=== PATIENT | female | born 2000 | race African-American/Black ===

== ENCOUNTER 2024-12-04 08:48 | Emergency (ER) | payer OTHER, SELFPAY ==
[2024-12-04 08:54] VITALS: BP 108/64; PULSE 98; RESP 18; TEMP 36.7; O2SAT 99; BMI 24.4
--- NOTE | 2024-12-04 08:54 | ECG_ITS ---
Test Reason : SYNCOPY Blood Pressure : */* mmHG Vent. Rate : 91 BPM Atrial Rate : 91 BPM P-R Int : 132 ms QRS Dur : 82 ms QT Int : 364 ms P-R-T Axes : 62 52 33 degrees QTcB Int : 447 ms Normal sinus rhythm with sinus arrhythmia Normal ECG No previous ECGs available Referred By: Apurva Rios Electronically Signed By: YESSI CURTIS
--- NOTE | 2024-12-04 08:54 | ED.GENADULT ---
HPI - General Adult General Chief complaint: Syncope Stated complaint: SYNCOPAL EPISODE PER EMS Time Seen by Provider: 12/04/24 08:52 Source: patient, RN notes reviewed, old records reviewed and other Mode of arrival: ambulatory Limitations: no limitations History of Present Illness ED Provider: Gabriel [facility] narrative: Patient is a 23-year old female with no reported past medical history presenting to the emergency department after a syncopal episode. She was doing an intense fitness test involving running, lifting, etc. She reports that she began to feel lightheaded and everything went dark. Co-worker states that patient collapsed to the ground, denies head strike, and was unresponsive for a few minutes with her eyes open, HR was 140. Patient then began to regain consciousness and had rapid respirations. Co-worker denies any seizure like activity. Patient states she did not have anything to eat this morning. Patient denies history of smoking, she is not on OCPs, denies recent calf pain or swelling. Denies any chest pain, palpitations, dyspnea. MD complaint: syncope Onset (ago): hour(s) Related Data Allergies Allergy/AdvReac Type Severity Reaction Status Date / Time sulfur dioxide Allergy Itching Verified 12/04/24 08:56 Review of Systems Review of Systems: As per HPI Yes all other systems are reviewed and are negative Constitutional: Constitutional: Reports as per HPI [facility] Social History Social History Smoked in Last 30 Days: No Use of substances other than those prescribed or required for medical reasons: No Advance Directives: No Advance Directives Information Provided: No Physical Exam ED Vital Signs: Vital Signs - 24 hr 12/04/24 08:54 12/04/24 09:22 12/04/24 10:18 Temperature 98.1 F Pulse Rate 98 68 Respiratory Rate 18 Blood Pressure 108/64 105/63 Pulse Oximetry 99 Oxygen Delivery Method Room Air Room Air 12/04/24 10:19 12/04/24 10:20 12/04/24 10:25 Temperature 98 F Pulse Rate 68 73 73 Respiratory Rate 16 Blood Pressure 109/67 118/69 118/69 Pulse Oximetry 100 Oxygen Delivery Method Room Air BMI result Body Mass Index 24.4 Vital signs have been reviewed and appear to be correct. Blood pressure normal. Heart rate normal. Respiratory rate normal. Temperature normal. Oxygen saturation normal. Const General: cooperative, healthy appearing and no acute distress Orientation/consciousness: oriented to person, oriented to place, oriented to time and patient oriented x3 Limitations: no limitations HENMT Head: Yes normocephalic and Yes atraumatic Ears: external ears normal General nose exam: Normal external nose present Face and sinus: Yes face symmetric Mouth: oropharynx normal and moist mucous membranes Throat: Yes uvula midline Eyes Pupils: Equal, round and reactive pupils present Neck Neck: Yes normal visual inspection and Yes supple Resp Effort & Inspection: normal respiratory effort and able to speak in complete sentences Auscultation: clear to auscultation bilaterally Cardio Rate: regular rate Rhythm: regular rhythm Heart sounds: S1 normal heart sound present and S2 normal heart sound present GI Palpation (GI): Soft to palpation and nontender Auscultation: normoactive bowel sounds General: Yes no CVA tenderness Back/Spine/Pelvis Back: no CVA tenderness Skin General skin exam: elasticity normal and turgor normal Neuro General: oriented to person, oriented to place, oriented to time, patient oriented x3, moves all extremities, no focal motor deficits and CN's II-XI intact bilaterally Cranial nerves: Yes Equal, round and reactive pupils present Cognition (Neuro): normal cognition Extrem General: Yes full ROM, Yes no pedal edema and Yes no calf tenderness Psych Mental Status: mental status grossly normal Affect: normal affect Thought process: Normal thought process present Medical Decision Making Medical Decision Making MDM Narrative: Patient is a 23-year old female with no reported past medical history presenting to the emergency department after a syncopal episode. On exam patient is awake, A+Ox3, VS WNL, afebrile, normal neurological exam without focal deficits, physical exam findings as above. Given reported symptoms and physical exam findings, initial differential includes but is not limited to vasovagal syncope, hypoglycemia or other electrolyte abnormality, dehydration, cardiac arrhythmia. Temperature very hot and humid outdoors today. Unlikely PE, PERC 0. Unlikely seizure. Labs notable for mild anemia not at transfusable level, no significant electrolyte abnormalities, negative HCG. EKG shows normal sinus rhythm. No orthostatic intolerance. Feel patient is stable for discharge, likely vasovagal syncope given prodromal symptoms. Discussed with patient that she should eat a small meal including protein prior to strenuous physical activity, and if she begins to feel lightheaded, should sit or lay down to prevent injury. Return precautions discussed. Follow up with PCP. Patient verbalized understanding of and agreement with plan. Differential Diagnosis Differential Diagnoses: The differential diagnosis associated with the presentation includes as per [facility] Admission/Observation Consideration of admission/observation: Escalation of care including admission/observation considered Patient would have been admitted to the hospital had their clinical presentation warranted hospital admission. Lab Data [facility] Lab Attestation statement: I reviewed the patient's lab results. as per [facility] 12/04/24 09:11 12/04/24 09:11 Labs: Lab Results 12/04/24 Range/Units 09:11 WBC 7.8 (4.8-10.8) X10*3/uL RBC 4.89 (4.20-5.50) X10*6/uL Hgb 11.6 L (12.0-16.0) g/dl Hct 36.8 L (37.0-47.0) % MCV 75.3 L (80.0-98.0) fL MCH 23.7 L (27.0-33.0) pg MCHC 31.5 (31.0-35.0) g/dl RDW 15.3 (11.0-16.0) % Plt Count 299 (160-400) X10*3/uL MPV 9.8 (9.4-12.3) fL Immature Gran % (Auto) 0.3 (0.0-0.4) % Neut % (Auto) 82.4 H (45-73) % Lymph % (Auto) 13.2 L (20-40) % [place] % (Auto) 3.6 (2-11) % Eos % (Auto) 0.1 (0-4) % Baso % (Auto) 0.4 (0-2) % Lymph # (Auto) 1.0 L (1.2-4.9) X10*3/uL [place] # (Auto) 0.3 (0.1-1.2) X10*3/uL Eos # (Auto) 0.0 (0.0-0.4) X10*3/uL Baso # (Auto) 0.0 (0.0-0.2) X10*3/uL Abs Immat Gran (auto) 0.02 (0.00-0.03) X10*3/uL Absolute Neuts (auto) 6.4 (2.0-8.3) x10*3/uL Absolute Nucleated RBC 0.000 (0.0-0.012) X10*3/uL Nucleated RBC % (auto) 0.0 (0.0-0.2) /100WBC PT 11.8 (10.9-12.4) SEC INR 1.0 (0.9-1.1) Sodium 140 (135-145) mmol/L Potassium 4.3 (3.3-5.1) mmol/L Chloride 108 (96-108) mmol/L Carbon Dioxide 19 L (22-29) mmol/L Anion Gap 17 (12-20) BUN 17 H (9-16) mg/dL Creatinine 1.06 (0.5-1.4) mg/dL Estim Creat Clear Calc 80.2 Estimated GFR > 60 Random Glucose 95 (60-115) mg/dL Calcium 9.5 (8.4-10.2) mg/dL Total Bilirubin 0.5 (0.0-1.0) mg/dL AST 21 (5-31) U/L ALT 10 (0-31) U/L Alkaline Phosphatase 76 (39-117) U/L Total Protein 7.9 (6.5-8.0) g/dL Albumin 4.5 (3.5-5.0) g/dL Beta HCG, Quant < 2 mIU/mL Independent Interpretation I performed an independent interpretation of an: EKG (Normal sinus rhythm, rate 91 beats per minute, normal MO interval and QTC) Independent Historian Clinical information obtained from an independent historian. History obtained from or confirmed by: Friend External Record Review External record reviewed: Inpatient record, Office record and Outpatient record Discharge Plan Discharge Clinical Impression: Vasovagal syncope Patient Disposition: Home, Self-Care Instructions: Syncope (DC) Additional Instructions: You were evaluated in the emergency department today after an episode of syncope, also known as fainting. Your evaluation did not show evidence of conditions requiring emergent medical treatment at this time. Be sure to drink plenty of fluids today, especially fluids with electrolytes. We also recommend that you have something to eat including protein prior to doing strenuous activities. We recommend that you follow-up with your primary care provider within the next 2 days. Return to the emergency department if you develop worsening or uncontrolled symptoms, headache, chest pain, shortness of breath, persistent vomiting, vision changes, recurrent fainting or any other concerning symptoms. Stand Alone Forms: Work/School Release Print Language: [place]ese
[2024-12-04 09:15] LABS: MANUAL DIFF FLAG NO
[2024-12-04 09:16] LABS: Hematocrit 36.8 % (37.0-47.0); Hemoglobin 11.6 g/dl (12.0-16.0); Imm Gran Abs Auto 0.02 X10*3/uL (0.00-0.03); Imm Gran Pct Auto 0.3 % (0.0-0.4); Lymphocytes Absolute Auto 1.0 X10*3/uL (1.2-4.9); Mean Corpuscular HGB Conc 31.5 g/dl (31.0-35.0); Mean Corpuscular Hemoglobin 23.7 pg (27.0-33.0); Mean Corpuscular Volume 75.3 fL (80.0-98.0); NRBC Abs Auto 0.000 X10*3/uL (0.0-0.012); NRBC Pct Auto 0.0 /100WBC (0.0-0.2); Platelet Count 299 X10*3/uL (160-400); Red Blood Count 4.89 X10*6/uL (4.20-5.50); White Blood Count 7.8 X10*3/uL (4.8-10.8)
[2024-12-04 09:24] LABS: INTERNATIONAL NORM RATIO 1.0 (0.9-1.1); Prothrombin Time 11.8 SEC (10.9-12.4)
--- NOTE | 2024-12-04 09:24 | PC.NURSE ---
Pt BIBA for near syncope. A/O x 3, calm and cooperative with care. Reports doing fitness test and feeling faint. Denies LOC, reports minimal PO intake this AM. EKG obtained, #20 placed in right forearm, labs sent.
--- OUTSIDE RECORDS SUMMARY | 2024-12-04 09:32 | XMS_ITS | Clinical Summary ---
Author Organization [facility] Address [address] [place] [id number] Care Team Providers Care Instrument Lens Inspector Name Role Phone Provider, Generic External Data Primary Care Pro vider Unavailable Allergies Active Allergy Reactions Criticality Noted Date Comments Shellfish-Derived Products Medications No known medications Active Problems No known active problems Social History Tobacco Use Types Packs/Day Years Used Date Smoking Tobacco: Never Smokeless Tobacco: Never Tobacco Cessation:Counseling Given: Not Answered Alcohol Use Standard Drinks/Week Comments Not Currently 0 (1 standard drink = 0.6 oz pur e alcohol) B1300 Health Literacy Answer Date Recor ded How often do you need to hav e someone help you when you read instructions, pamphlets, or other written material from your doctor or pharmacy? Never 02/16/2024 Comments No Sex and Gender Information Value Date Recorded Sex Assigned at Not on file Legal Sex Female 2:34 PM EDT Gender Identity Not on file Sexual Orientation Not on file Last Filed Vital Signs Vital Sign Reading Time Taken Comments Blood Pressure 109/75 02/16/2024 2:26 PM EDT Pulse 94 02/16/2024 2:26 PM EDT Temperature 37 C (98.6 F) 02/16/2024 1:04 PM EDT Respiratory Rate 16 02/16/2024 2:26 PM EDT Oxygen Saturation 98% 02/16/2024 2:26 PM EDT Inhaled Oxygen Concentration - - Weight 63.5 kg (140 lb) 02/16/2024 1:04 PM EDT Height 170.2 cm (5' 7 ) 02/16/2024 1:04 PM EDT Body Mass Index 21.93 02/16/2024 1:04 PM EDT Plan of Treatment Health Maintenance Due Date Last Done Comments Hepatitis C Screening 2000 HIV Screening 12/15/2015 Chlamydia Screening 2016 HPV Vaccines (3 - 3-dose series) 11/26/2018 09/03/2018, 01/20/2018 Pap Smear 2021 COVID-19 Vaccine ( - season) 2024 11/10/2020, 09/25/2020 Annual Wellness Visit 07/16/2024 07/17/2023 Influenza Vaccine (#1) 2025 09/10/2020 DTaP,Tdap,and Td Vaccines (8 - Td or Tdap) 09/10/2030 09/10/2020, 12/24/2017, 12/01/2005, Additional history exists Meningococcal Vaccine Completed 09/10/2020, 018 Pneumococcal Vaccine: Pediatrics (0 to 5 Years) and At-Risk Patients (6 to 64 Years) Aged Out No longer eligible based on patient's age to complete this topic Insurance [employer] ([employer]) [employer]) Care Teams Instrument Lens Inspector Relationship Specialty Start Date End Date Provider, Generic External Data 0 PCP - General 12/22/21
--- OUTSIDE RECORDS SUMMARY | 2024-12-04 09:32 | XMS_ITS | Clinical Summary ---
Author Organization [facility] Address [address] [place] [address] Care Team Providers Care Setter Out Name Role Phone Kokobony Nenanathaniel TANG DNP Primary Care Provider [phone] Source Comments PLEASE NOTE, if this patient is a minor, it may be UNLAWFUL to discuss sensitive information that is contained in these records (such as FAMILY PLANNING, MENTAL HEALTH or SUBSTANCE ABUSE) with the minor patient's parent or other person without the patient's specific authorization.[facility] Allergies Active Allergy Reactions Criticality Noted Date Comments Shrimp Nausea and Vomiting 07/17/2023 Sulfa (Sulfonamide Antibiotics) Itching 05/2023 Medications Hospital, Clinic, or Other Facility Administered Medication Ordered Dose Route Frequency Start Date End Date Status medroxyPROGESTERone (Depo-Provera) injection syringe 150 mgIndications:Encounte r for initial prescription of injectable contraceptive 150 mg IM Once 07/17/2023 Active medroxyPROGESTERone (Depo-Provera) injection syringe 150 mgIndications:Uses 3-month hormonal injection as primary control method 150 mg IM Every 3 months 10/05/2023 03/28/2025 Active Active Problems Problem Noted Date Diagnosed Date Encounter for routine history and physical exam in female 07/17/2023 Assessment & Plan (07/17/2023 12:37 PM EST): Normal exam Needs to get Vaccine records from Service Records She needs first SPIN[employer]FFER exam and she will make an appt Encounter for initial prescr iption of injectable contraceptive 07/17/2023 Assessment & Plan (07/17/2023 12:40 PM EST): Patient requested Dep Injection for contraception Currently using condoms, previously tried pills, could not remember to take them Reviewed risks and benefits, and need for an injection every 3 months, she agrees Discussed SE, and that starting it today she will need to abstain from sex x 7 days or use a condom, she agrees DMPA first dose given today, POCT Urine HCG negative Immunizations Immunization Administration Dates Next Due Bacillus Calmette-arianna (tb) 01/29/2001 DTP 12/01/2005, 2,04/19/2001,03/08,01/29/2001 HEP B, PED/ADOL (QREELRD-Y-EPEB/RECOMBIVAX-PEDS) 07/24/2003,12/19/2002 HPV 9 (Gardasil) 09/03/2018,01/20/2018 Hib (HbOC) 12/19/2002 IPV (IPOL) 04/19/2001,03/08/2001,01/29/2001 MENINGOCOCCAL MCV4O (MENVEO) 01/20/2018 MMR (MMR II/Priorix) 12/01/2005,12/06/2001 OPV, Trivalent 12/01/2005,05/02/2002 TDAP 12/24/2017 Varicella (Varivax), Live Vaccine 12/24/2017 Family History Medical History Relation Name Comments Diabetes Mellitus II Father Relation Name Status Comments Father T2DM Social History Tobacco Use Types Packs/Day Years Used Date Smoking Tobacco: Never Smokeless Tobacco: Never Tobacco Cessation:Counseling Given: Not Answered Alcohol Use Standard Drinks/Week Comments Not Currently 1 (1 standard drink = 0.6 oz pur e alcohol) 1 drink per year Social Connections Answer Date Recorded Connectedness 0 01/25/2024 Financial Resource Strain Answer Date R ecorded Financial Resource Strain 0 2022 Stress Answer Date Recorded Stress 0 04/27/2023 Physical Activity Answer Date Recorded Physical Activity 0 04/27/2023 Food Insecurity Answer Date Recorded Food 1 07/17/2023 Transportation Needs Answer Date Record ed Transportation 1 07/17/2023 Housing Stability Answer Date Recorded Housing 1 07/17/2023 Safety and Environment Answer Date Justin rded Safety 1 07/17/2023 Utilities Answer Date Recorded Utilities 1 07/17/2023 Employment Answer Date Recorded Stress 1 07/17/2023 Comments Unknown Sex and Gender Information Value Date Recorded Sex Assigned at Not on file Legal Sex Female 12:01 PM PDT Gender Identity Female 09/02/2021 6:00 PM PDT Sexual Orientation Straight 09/02/2021 6: 00 PM PDT Last Filed Vital Signs Vital Sign Reading Time Taken Comments Blood Pressure 110/72 07/17/2023 10:05 AM EST Pulse 77 07/17/2023 10:05 AM EST Temperature 36.7 C (98.1 F) 07/17/2023 10:05 AM EST Respiratory Rate 16 07/17/2023 10:05 AM EST Oxygen Saturation 98% 07/17/2023 10:05 AM EST Inhaled Oxygen Concentration - - Weight 64.9 kg (143 lb) 07/17/2023 10:05 AM EST Height 168.9 cm (5' 6.5 ) 07/17/2023 10:05 AM ES T Body Mass Index 22.74 07/17/2023 10:05 AM EST Plan of Treatment Health Maintenance Due Date Last Done Comments Anxiety Screening 2000 HPV Screening 2000 Hepatitis C Screening 2000 Pap + HPV 2000 Tobacco Screening 2000 Imm-Hepatitis B (3 of 3 - 3- dose series) 09/18/2003 07/24/2003, 12/19/2002 Chlamydia Screening 2013 Gonorrhea Screening 2013 HIV Screening 12/15/2015 Imm-Varicella (2 of 2 - 13+ 2-dose series) 01/21/2018 12/24/2017 Imm-HPV (3 - 3-dose series) 11/26/2018 09/03/2018, 0 01/20/2018 Cervical Cancer Screening 2021 Pap Smear 2021 [id number] INJ 12/28/2023 10/05/2023 [id number] ( season) 2024 Alcohol and Drug Screen 05/18/2024 Depression Annual Screen 05/18/2024 07/17/2023 Annual Wellness (Adult): Indicated (All Coverage) 07/16/2024 07/17/2023 Hypertension Screening (#1) 07/16/2024 Relationship Safety Screening/Counseling 07/16/2024 07/17/2023 Imm-Influenza (#1) 2025 Imm-DTaP/Tdap/Td (7 - Td or Tdap) 12/25/2027 12/24/2017, 12/01/2005, 05/02/2002, Additional history exists Cervical Ablation/Cold-Knife Conization Discontinued Cervical Cryotherapy Discontinued Colposcopy Discontinued Endometrial Biopsy Discontinued Excision/Leep Discontinued HPV Genotyping Discontinued Vaginal Pap Discontinued Vulvoscopy Discontinued Insurance [employer] Member Subscriber Plan / Payer (Ef fective 2024-Present) Name:BlandonSara Relation to Subscriber:Self Name:Sasha BlandonMichellechacha Payer ID:[id number] Type:Indemnity Address: [facility] [address] [place] [address] Care Teams Setter Out Relationship Specialty Start Date End Date Nena Bright APRN, DNP [facility] [address] [address] PCP - General [employer] Nurse Practitioner 07/13/23
[2024-12-04 09:43] LABS: Alanine Aminotransferase 10 U/L (0-31); Albumin Level 4.5 g/dL (3.5-5.0); Alkaline Phosphatase 76 U/L (39-117); Anion Gap 17 (12-20); Aspartate Amino Transferase 21 U/L (5-31); Blood Urea Nitrogen 17 mg/dL (9-16); Calcium 9.5 mg/dL (8.4-10.2); Carbon Dioxide 19 mmol/L (22-29); Chloride 108 mmol/L (96-108); Creatinine Clr Calc Pharmacy 80.2; Estimated Glomerular Filt Rate > 60; Potassium 4.3 mmol/L (3.3-5.1); Sodium 140 mmol/L (135-145); Total Protein 7.9 g/dL (6.5-8.0)
[2024-12-04 10:18] VITALS: BP 105/63; PULSE 68
[2024-12-04 10:19] VITALS: BP 109/67; PULSE 68
[2024-12-04 10:20] VITALS: BP 118/69; PULSE 73
--- NOTE | 2024-12-04 10:21 | PC.NURSE ---
Orthostatic VS complete, ambulated to bathroom with steady gait. Denies any lightheadedness or dizziness at this time.
[2024-12-04 10:25] VITALS: BP 118/69; PULSE 73; RESP 16; TEMP 36.6; O2SAT 100
[2024-12-04 11:22] VITALS: BP 118/69; PULSE 73; RESP 16; TEMP 36.6; O2SAT 100
== END 2024-12-04 11:22 | disposition home or self-care (01) ==
PROVIDERS: Registered Nurse Emergency; Emergency Provider Emergency Medicine
DX: R55 Syncope and collapse (principal); R10.2 Pelvic and perineal pain; D64.9 Anemia, unspecified; I49.8 Other specified cardiac arrhythmias
CPT/HCPCS: 36415; 80053; 84702; 85025; 85610; 93005; 99284; 99285

== ENCOUNTER → 2024-12-04 08:54 | Outpatient (BNV) | payer OTHER, SELFPAY | PROVIDERS: Emergency Provider Emergency Medicine; Visit Provider Internal Medicine | DX: R55 Syncope and collapse (principal) | CPT/HCPCS: 93010 ==